=== PATIENT | male | born 1990 | race Caucasian/White ===

== ENCOUNTER 2017-02-20 18:37 | Emergency (ER) | payer BC, OTHER ==
[2017-02-20 18:47] VITALS: BP 130/89
--- NOTE | 2017-02-20 18:54 | UC ---
Ear Complaint HPI - HPI Summary HPI Summary: intermittent drainage from right ear x 1 month some intermittent pain and itching but non now hearing does not seem to be affected - History of Current Complaint Chief Complaint: UCEar Stated Complaint: EAR PAIN Time Seen by Provider: 02/20/17 18:43 Hx Obtained From: Patient Onset/Duration: Gradual Onset, Lasting Weeks Severity Initially: Mild Severity Currently: None Pain Intensity: 0 Pain Scale Used: 0-10 Numeric Alleviating Factors: Nothing Associated Signs/Symptoms: Positive: Discharge. Negative: Hearing Loss, Foreign Body Sensation, Trauma to Ear, Swelling @, URI Symptoms - Allergies/Home Medications Allergies/Adverse Reactions: Allergies Allergy/AdvReac Type Severity Reaction Status Date / Time No Known Allergies Allergy Verified 02/20/17 18:42 Home Medications: Home Medications NK [No Home Medications Reported] 02/20/17 [History Confirmed 02/20/17] PMH/Surg Hx/FS Hx/Imm Hx Previously Healthy: Yes - Surgical History Surgical History: None - Family History Known Family History: Positive: Diabetes Negative: Cardiac Disease, Hypertension - Social History Alcohol Use: Occasionally Substance Use Type: None Smoking Status (MU): Never Smoked Tobacco Review of Systems Constitutional: Negative Skin: Negative Eyes: Negative ENT: Other - discharge right ear Respiratory: Negative Cardiovascular: Negative Gastrointestinal: Negative Genitourinary: Negative Motor: Negative Neurovascular: Negative Musculoskeletal: Negative Neurological: Negative Psychological: Negative Is Patient Immunocompromised?: No All Other Systems Reviewed And Are Negative: Yes Physical Exam Triage Information Reviewed: Yes Appearance: Well-Appearing, No Pain Distress, Well-Nourished Vital Signs: Initial Vital Signs Temp 98 F 02/20/17 18:39 Pulse 78 02/20/17 18:39 Resp 16 02/20/17 18:39 BP 130/89 02/20/17 18:39 Pulse Ox 100 02/20/17 18:39 Eyes: Positive: Conjunctiva Clear ENT: Positive: Hearing grossly normal, TMs normal, Other: - whitish debris in right EAC. Negative: Nasal congestion, Nasal drainage, Tonsillar swelling, Tonsillar exudate, Trismus, Muffled/hoarse voice Neck: Positive: Supple, Nontender, No Lymphadenopathy Respiratory: Positive: Lungs clear, Normal breath sounds, No respiratory distress Cardiovascular: Positive: RRR, No Murmur Musculoskeletal: Positive: ROM Intact Neurological Exam: Normal Neurological: Positive: Alert Psychological Exam: Normal Skin Exam: Normal Ear Complaint Course/Dx - Course Course Of Treatment: after debris flushed out of right EAC TM was fully visualized and is normal - Differential Dx/Diagnosis Provider Diagnoses: right otitis externa. elevated bp Discharge - Discharge Plan Condition: Stable Disposition: HOME Patient Education Materials: Otitis Externa (ED) Referrals: No Primary Care Phys,NOPCP [Primary Care Provider] - Additional Instructions: use drops as instructed you BP is a little high and should be rechecked by your provider
[2017-02-20] MEDS ORDERED: Neomyc/Polym/HC 1% OTIC SUSP* **OTIC RIGHT EAR ONE (19:50)
== END 2017-02-20 20:25 | disposition home or self-care (01) ==
LOC: UCEAST 18:37
DX: H60.91 Unspecified otitis externa, right ear (principal); R03.0 Elevated blood-pressure reading, without diagnosis of hypertension
CPT/HCPCS: 99203; A9270-GY; G0463

== ENCOUNTER 2020-06-07 16:22 | Inpatient (IN) ==
[2020-06-07] MEDS ORDERED: NS 0.9% 1000 ml BAG 1,000 ML IV.FLUID IV ONE (17:03)
[2020-06-07 18:13] LABS: Hematocrit 44 % (42-52); Hemoglobin 15.7 g/dL (14.0-18.0); Mean Corpuscular HGB Conc 36 g/dL (31-36); Mean Corpuscular Hemoglobin 31 pg (27-31); Mean Corpuscular Volume 86 fL (80-94); Red Blood Count 5.11 10^6 /uL (4.18-5.48); Red Cell Distribution Width 12 % (10-15); White Blood Count 2.3 10^3/uL (3.5-10.8)
[2020-06-07 18:18] LABS: Activated Partial Thrombo Time 28.7 seconds (26.0-38.0); INR 1.23 (0.82-1.09)
[2020-06-07 18:26] LABS: ALT 130 U/L (7-52); AST 95 U/L (13-39); Albumin 4.3 g/dL (3.2-5.2); Albumin/Globulin Ratio 1.4 (1-3); Alkaline Phosphatase 53 U/L (34-104); Anion Gap 7 mmol/L (2-11); Blood Urea Nitrogen 17 mg/dL (6-24); C Reactive Protein 138.38 mg/L (<8.01); CO2 Carbon Dioxide 29 mmol/L (22-32); Calcium 9.1 mg/dL (8.6-10.3); Chloride 99 mmol/L (101-111); EGFR African American 108.5 (>60); EGFR Non-African American 89.6 (>60); Globulin 3.1 g/dL (2-4); Glucose 98 mg/dL (70-100); Potassium 3.9 mmol/L (3.5-5.0); Sodium 135 mmol/L (135-145); Total Protein 7.4 g/dL (6.4-8.9)
[2020-06-07 18:35] LABS: Influenza A Molecular Negative (Negative); Influenza B Molecular Negative (Negative)
[2020-06-07 18:40] LABS: ABS Lymphocytes 0.3 10^3/ul (1.0-4.8); ABS Monocytes 0.2 10^3/ul (0-0.8); ABS Neutrophils 1.9 10^3/ul (1.5-7.7); Eosinophil % 0.1 %; Lymphocyte % 11.5 %; Mean Platelet Volume 10.6 fL (7.4-10.4); Nucleated Red Blood Cells % 0.4; Platelet Count 82 10^3/uL (150-450)
[2020-06-07 18:58] LABS: Acetaminophen < 15 mcg/mL
[2020-06-07] MEDS ORDERED: Azithromycin 500 mg/250 ml NS 500 MG/250 ML BAG IVPB ONE (19:53)
[2020-06-07 20:35] LABS: LDH 603 U/L (140-271)
[2020-06-07 21:48] LABS: Hepatitis B Surface Antigen Nonreactive (Nonreactive)
[2020-06-07 21:53] LABS: Hepatitis A Ab IgM Negative (Negative)
[2020-06-07 21:54] LABS: Hepatitis B Core IgM Nonreactive (Nonreactive)
[2020-06-07 22:06] LABS: Hepatitis C Antibody Negative (Negative)
[2020-06-08 06:43] LABS: ABS Lymphocytes 0.4 10^3/ul (1.0-4.8); ABS Monocytes 0.1 10^3/ul (0-0.8); ABS Neutrophils 1.8 10^3/ul (1.5-7.7); Eosinophil % 0.1 %; Hematocrit 37 % (42-52); Hemoglobin 12.9 g/dL (14.0-18.0); Lymphocyte % 15.3 %; Mean Corpuscular HGB Conc 35 g/dL (31-36); Mean Corpuscular Hemoglobin 30 pg (27-31); Mean Corpuscular Volume 86 fL (80-94); Mean Platelet Volume 9.9 fL (7.4-10.4); Nucleated Red Blood Cells % 0.2; Platelet Count 71 10^3/uL (150-450); Red Blood Count 4.25 10^6 /uL (4.18-5.48); Red Cell Distribution Width 13 % (10-15); White Blood Count 2.3 10^3/uL (3.5-10.8)
[2020-06-08 06:50] LABS: Albumin 3.4 g/dL (3.2-5.2); Albumin/Globulin Ratio 1.4 (1-3); BUN/Creatinine Ratio 14.5 (8-20); Calcium 7.9 mg/dL (8.6-10.3); EGFR African American 134.5 (>60); EGFR Non-African American 111.1 (>60); Globulin 2.5 g/dL (2-4); Potassium 3.9 mmol/L (3.5-5.0); Total Bilirubin 2.2 mg/dL (0.2-1.0); Total Protein 5.9 g/dL (6.4-8.9)
[2020-06-08] MEDS: NS 0.9% 1000 ml BAG 1,000 ML IV SCH ×2 (07:39→16:46)
[2020-06-08 09:34] LABS: RBC Parasite Smear No Parasites Seen (No Parasite)
[2020-06-08] MEDS: Ondansetron 4 mg VIAL 2 MG/ML 2 ml VIAL IV PRN ×2 (12:01→18:26)
[2020-06-08] MEDS ORDERED: Iohexol 350 (CONTRAST) 500 ML MDV IV ONE (16:39)
[2020-06-08] MEDS: DOXYcycline 100 MG in NS 0.9% 250 ml 250 ML IVPB SCH (17:32)
[2020-06-09] MEDS: DOXYcycline 100 MG in NS 0.9% 250 ml 250 ML IVPB SCH ×2 (03:43→16:07)
[2020-06-09] MEDS: Ondansetron 4 mg VIAL 2 MG/ML 2 ml VIAL IV PRN ×3 (05:48→19:44)
[2020-06-09 05:53] LABS: ABS Lymphocytes 0.4 10^3/ul (1.0-4.8); ABS Monocytes 0.1 10^3/ul (0-0.8); ABS Neutrophils 2.4 10^3/ul (1.5-7.7); Eosinophil % 0.6 %; Hematocrit 39 % (42-52); Hemoglobin 13.5 g/dL (14.0-18.0); Lymphocyte % 13.2 %; Mean Corpuscular HGB Conc 35 g/dL (31-36); Mean Corpuscular Hemoglobin 31 pg (27-31); Mean Corpuscular Volume 88 fL (80-94); Nucleated Red Blood Cells % 0.1; Platelet Count 72 10^3/uL (150-450); Red Cell Distribution Width 13 % (10-15); White Blood Count 2.9 10^3/uL (3.5-10.8)
[2020-06-09 05:59] LABS: Albumin 3.4 g/dL (3.2-5.2); Albumin/Globulin Ratio 1.4 (1-3); BUN/Creatinine Ratio 18.3 (8-20); C Reactive Protein 127.64 mg/L (<8.01); Calcium 8.1 mg/dL (8.6-10.3); EGFR African American 195.6 (>60); EGFR Non-African American 161.6 (>60); Globulin 2.5 g/dL (2-4); Total Bilirubin 2.4 mg/dL (0.2-1.0); Total Protein 5.9 g/dL (6.4-8.9)
[2020-06-09 06:08] LABS: Potassium 3.8 mmol/L (3.5-5.0)
[2020-06-09] MEDS: NS 0.9% 1000 ml BAG 1,000 ML IV SCH (07:28)
[2020-06-09 10:58] LABS: HIV 4th Generation Nonreactive (Nonreactive)
[2020-06-09] MEDS ORDERED: Lactated Ringers 1000 ml BAG 1,000 ML IV ONE (12:14)
[2020-06-10] MEDS: Ondansetron 4 mg VIAL 2 MG/ML 2 ml VIAL IV PRN (02:37)
[2020-06-10] MEDS: DOXYcycline 100 MG in NS 0.9% 250 ml 250 ML IVPB SCH ×2 (03:53→16:21)
[2020-06-10 05:54] LABS: ABS Eosinophils 0.1 10^3/ul (0-0.6); ABS Lymphocytes 0.5 10^3/ul (1.0-4.8); ABS Monocytes 0.2 10^3/ul (0-0.8); ABS Neutrophils 3.4 10^3/ul (1.5-7.7); Eosinophil % 1.2 %; Hematocrit 36 % (42-52); Hemoglobin 12.6 g/dL (14.0-18.0); Lymphocyte % 12.7 %; Mean Corpuscular HGB Conc 35 g/dL (31-36); Mean Corpuscular Hemoglobin 30 pg (27-31); Mean Corpuscular Volume 86 fL (80-94); Mean Platelet Volume 10.8 fL (7.4-10.4); Nucleated Red Blood Cells % 0.1; Platelet Count 69 10^3/uL (150-450); Red Blood Count 4.16 10^6 /uL (4.18-5.48); Red Cell Distribution Width 13 % (10-15); White Blood Count 4.1 10^3/uL (3.5-10.8)
[2020-06-10 06:06] LABS: Albumin 3.1 g/dL (3.2-5.2); Albumin/Globulin Ratio 1.3 (1-3); BUN/Creatinine Ratio 15.9 (8-20); C Reactive Protein 142.18 mg/L (<8.01); Calcium 7.8 mg/dL (8.6-10.3); EGFR African American 165.2 (>60); EGFR Non-African American 136.5 (>60); Globulin 2.4 g/dL (2-4); Potassium 3.8 mmol/L (3.5-5.0); Total Bilirubin 1.7 mg/dL (0.2-1.0); Total Protein 5.5 g/dL (6.4-8.9)
[2020-06-10] MEDS ORDERED: Lactated Ringers 1000 ml BAG 1,000 ML IV ONE ×2 (11:42→14:32)
[2020-06-10 12:34] LABS: Troponin I 0.02 ng/mL (<0.03)
[2020-06-10 16:13] LABS: Troponin I 0.05 ng/mL (<0.03)
[2020-06-10] MEDS: Lactated Ringers 1000 ml BAG 1,000 ML IV SCH ×2 (16:21→23:17)
[2020-06-10 22:35] LABS: Haptoglobin <14 mg/dL (30 - 200)
[2020-06-11] MEDS: DOXYcycline 100 MG in NS 0.9% 250 ml 250 ML IVPB SCH ×2 (04:01→16:41)
[2020-06-11] MEDS: Lactated Ringers 1000 ml BAG 1,000 ML IV SCH ×3 (06:17→13:35)
[2020-06-11 06:52] LABS: ABS Eosinophils 0.1 10^3/ul (0-0.6); ABS Lymphocytes 0.7 10^3/ul (1.0-4.8); ABS Monocytes 0.2 10^3/ul (0-0.8); ABS Neutrophils 3.5 10^3/ul (1.5-7.7); Eosinophil % 1.8 %; Hematocrit 35 % (42-52); Hemoglobin 12.2 g/dL (14.0-18.0); Lymphocyte % 15.8 %; Mean Corpuscular HGB Conc 35 g/dL (31-36); Mean Corpuscular Hemoglobin 31 pg (27-31); Mean Corpuscular Volume 88 fL (80-94); Nucleated Red Blood Cells % 0.1; Platelet Count 78 10^3/uL (150-450); Red Blood Count 3.97 10^6 /uL (4.18-5.48); Red Cell Distribution Width 13 % (10-15); White Blood Count 4.5 10^3/uL (3.5-10.8)
[2020-06-11 07:04] LABS: Albumin 2.8 g/dL (3.2-5.2); Albumin/Globulin Ratio 1.2 (1-3); BUN/Creatinine Ratio 20.3 (8-20); C Reactive Protein 193.42 mg/L (<8.01); Calcium 7.6 mg/dL (8.6-10.3); EGFR African American 165.2 (>60); EGFR Non-African American 136.5 (>60); Globulin 2.4 g/dL (2-4); Potassium 3.4 mmol/L (3.5-5.0); Total Bilirubin 1.4 mg/dL (0.2-1.0); Total Protein 5.2 g/dL (6.4-8.9)
[2020-06-11] MEDS ORDERED: Perflutren Lipid Microsphere 3 ML VIAL ONE (08:24)
[2020-06-11] MEDS ORDERED: Metoprolol Tartrate 5 mg VIAL 5 ml VIAL (1 mg/ml) ONE (09:30)
[2020-06-11] MEDS ORDERED: Metoprolol Tartrate 5 mg VIAL 5 ml VIAL (1 mg/ml) IV ONE (09:34)
[2020-06-11] MEDS ORDERED: Potassium Chlor 20 meq TAB.ER PO ONE (11:00)
[2020-06-11 13:16] LABS: Magnesium 1.8 mg/dL (1.9-2.7)
[2020-06-11] MEDS: Azithromycin 500 mg/250 ml NS 500 MG/250 ML BAG IVPB SCH (13:35)
[2020-06-11] MEDS ORDERED: Magnesium Sulfate 2 gm BAG 2 GM/50 ML BAG IVPB ONE (14:27)
[2020-06-11 15:23] LABS: RBC Parasite Smear No Parasites Seen (No Parasite)
[2020-06-11 15:54] LABS: Cytomegalovirus IgG Antibody Negative (Negative)
[2020-06-11] MEDS: Dextran 70/Hypromellose Tears Eye Drops 15 ml BTL (for Artificials Tears) BOTH EYES PRN (21:45)
[2020-06-11 22:34] LABS: Troponin I 0.03 ng/mL (<0.03)
[2020-06-12] MEDS ORDERED: Morphine 2 MG/ML SYRINGE IV ONE (00:55)
[2020-06-12] MEDS ORDERED: Morphine 2 MG/ML SYRINGE ONE (01:15)
[2020-06-12] MEDS: Lactated Ringers 1000 ml BAG 1,000 ML IV SCH (01:22)
[2020-06-12] MEDS: DOXYcycline 100 MG in NS 0.9% 250 ml 250 ML IVPB SCH ×2 (03:37→16:09)
[2020-06-12] MEDS: Dextran 70/Hypromellose Tears Eye Drops 15 ml BTL (for Artificials Tears) BOTH EYES PRN (04:21)
[2020-06-12 06:44] LABS: Albumin 2.9 g/dL (3.2-5.2); Albumin/Globulin Ratio 1.1 (1-3); BUN/Creatinine Ratio 21.5 (8-20); C Reactive Protein 252.32 mg/L (<8.01); Calcium 7.6 mg/dL (8.6-10.3); EGFR Non-African American 146.3 (>60); Globulin 2.6 g/dL (2-4); Potassium 3.9 mmol/L (3.5-5.0); Total Protein 5.5 g/dL (6.4-8.9)
[2020-06-12 07:14] LABS: Hematocrit 35 % (42-52); Hemoglobin 12.4 g/dL (14.0-18.0); Mean Corpuscular HGB Conc 35 g/dL (31-36); Mean Corpuscular Hemoglobin 31 pg (27-31); Mean Corpuscular Volume 89 fL (80-94); Red Blood Count 3.98 10^6 /uL (4.18-5.48); Red Cell Distribution Width 13 % (10-15); White Blood Count 6.5 10^3/uL (3.5-10.8)
[2020-06-12 08:14] LABS: ABS Eosinophils 0.2 10^3/ul (0-0.6); ABS Lymphocytes 1.1 10^3/ul (1.0-4.8); ABS Monocytes 0.3 10^3/ul (0-0.8); ABS Neutrophils 4.8 10^3/ul (1.5-7.7); Eosinophil % 2.9 %; Lymphocyte % 16.9 %; Mean Platelet Volume 11.4 fL (7.4-10.4); Nucleated Red Blood Cells % 0.2; Platelet Count 111 10^3/uL (150-450)
[2020-06-12] MEDS ORDERED: Furosemide 20 mg/2 ml IV VIAL IV SLOW PU ONE ×2 (08:30→19:08)
[2020-06-12 10:43] LABS: EBV Capsid Ag IgG Ab Negative (Negative); EBV Capsid Ag IgM Ab Negative (Negative); Epstein-Barr Nuclear Antigen Negative (Negative)
[2020-06-12] MEDS: Azithromycin 500 mg/250 ml NS 500 MG/250 ML BAG IVPB SCH (12:49)
[2020-06-12 13:42] LABS: Toxoplasma IgG Antibody Negative (Negative); Toxoplasma IgG Antibody Index <3 IU/mL; Toxoplasma IgM Antibody Negative (Negative)
[2020-06-12 20:13] LABS: Anaplasma phagocytophilum Negative (Negative); B. miyamotoi PCR, B Negative (Negative); Babesia divergens/MO-1 Negative (Negative); Babesia ducani Negative (Negative); Ehrlichia chaffeensis Negative (Negative); Ehrlichia ewingii/canis Negative (Negative); Ehrlichia muris eauclairensis Negative (Negative)
[2020-06-12 23:01] LABS: HIV-1 RNA (PCR) Undetected copies/mL (Undetected)
[2020-06-13] MEDS: DOXYcycline 100 MG in NS 0.9% 250 ml 250 ML IVPB SCH ×2 (04:40→17:22)
[2020-06-13] MEDS ORDERED: Furosemide 40 mg/4 ml IV VIAL IV SLOW PU ONE (11:48)
[2020-06-13 16:04] LABS: Anaplasma phagocytophilium <1:64 titer (<1:64); Ehrlichia chaffeensis IgG AB <1:64 titer (<1:64); Lyme Disease Serology Negative (Negative)
[2020-06-13] MEDS ORDERED: Potassium Chlor 20 meq TAB.ER PO ONE (16:07)
[2020-06-14] MEDS: DOXYcycline 100 MG in NS 0.9% 250 ml 250 ML IVPB SCH (04:21)
[2020-06-14] MEDS ORDERED: Furosemide 20 mg/2 ml IV VIAL IV ONE (12:35)
[2020-06-14 15:26] LABS: Spotted Fever Group IgG Ab, S <1:64 (<1:64); Spotted Fever Group IgM Ab, S <1:64 (<1:64)
[2020-06-14] MEDS ORDERED: Enoxaparin 40 MG/0.4 ML SYR SUBCUT SCH (16:00)
[2020-06-15 07:23] LABS: BUN/Creatinine Ratio 19.3 (8-20); C Reactive Protein 35.46 mg/L (<8.01); Calcium 8.4 mg/dL (8.6-10.3); EGFR Non-African American 170.2 (>60); Potassium 3.8 mmol/L (3.5-5.0)
[2020-06-15 14:03] VITALS: BP 128/70
== END 2020-06-15 13:20 | disposition home or self-care (01) | DRG 720 ==
LOC: ED 16:22 → MED 21:55 → SSU 06-08 17:11 → MEDTELE 06-11 10:27
PROVIDERS: ADMIT Hospitalist; ATTEND Internal Medicine